=== PATIENT | male | born 1990 | race Caucasian/White ===

== ENCOUNTER 2023-05-19 10:52 | Emergency (ER) | payer OTHER, SELFPAY ==
--- NOTE | 2023-05-19 11:19 | PC.NURSE ---
Visualized upon entry to ED, no acute distress.
[2023-05-19 11:22] VITALS: BP 144/90; PULSE 65; RESP 15; TEMP 37; O2SAT 99; BMI 26.5
--- NOTE | 2023-05-19 11:40 | ED.CHESTPAIN ---
HPI - Chest Pain <Mariya Baum PA-C - Last Filed: 05/19/23 13:55> General Chief Complaint: Chest Pain Stated Complaint: L chest/shoulder pain Time Seen by Provider: 05/19/23 11:31 Source: patient Mode of arrival: Family Vehicle Limitations: no limitations History of Present Illness HPI narrative: Patient is a 32-year-old male who presents with left-sided chest pain x2 days. He reports no history of chest pain, early cardiac , cardiac problems in the family. He does report that he recently had an MRI of his heart because there was concern for enlarged tissue in his heart but they did not find anything on the MRI and he was cleared by a solar sales estimator. He does not have recurring chest pain. He reports this chest pain feels muscular, it is worse with lifting or pushing movements and is better with rest, but he does endorse discomfort all the time. He thought it was due to sleeping in a strange position but it has not seemed to resolve. He works as an manufacturing support engineer on an [employer] and is about to leave for an extended trip to [place] so he needs to make sure that he can continue his work to a remote area. He endorses some nausea and coughing up phlegm over the past days but denies vomiting, diaphoresis, exercise intolerance. He is generally active and healthy. He does not take any medications daily. He has a nonsmoker. Related Data Home Medications Medication Instructions Recorded Confirmed No Known Home Medications 05/19/23 05/19/23 Allergies Allergy/AdvReac Type Severity Reaction Status Date / Time No Known Drug Allergies Allergy Verified 05/19/23 10:25 Review of Systems <Mariya Baum PA-C - Last Filed: 05/19/23 13:55> Review of Systems ROS Unobtainable: All systems reviewed & are unremarkable except as noted in HPI and below Patient History <Mariya Baum PA-C - Last Filed: 05/19/23 13:55> Social History Smoking Status: Never smoker Smoking Status: Never smoker alcohol intake frequency: holidays/special occasions only Substance Use Type: does not use Exam <Mariya Baum PA-C - Last Filed: 05/19/23 13:55> Narrative Exam Narrative: GENERAL: 32 year old patient appears stated age. Well-developed patient, in no distress. NEURO: AOx3. HEAD: Atraumatic. Normocephalic. EYES: Pupils equal round and reactive. Extraocular motions intact. No scleral icterus. No injection or drainage. ENT: Nose without bleeding or purulent drainage. Airway patent. NECK: Trachea midline. Non tender CARDIOVASCULAR: Regular rate and rhythm without murmurs, gallops, or rubs. RESPIRATORY: Clear to auscultation. Breath sounds equal bilaterally. No wheezes, rales, or rhonchi. CHEST WALL: Tender to palpation over left pectoral muscle, just medial and inferior to axilla. SKIN: No rash or erythema of visible areas Initial Vital Signs Initial Vital Signs: Vital Signs Temperature 98.6 F 05/19/23 11:22 Pulse Rate 65 05/19/23 11:22 Respiratory Rate 15 05/19/23 11:22 Blood Pressure 144/90 H 05/19/23 11:22 Pulse Oximetry 99 05/19/23 11:22 Oxygen Delivery Method Room Air 05/19/23 11:22 <Palma Martinez DO - Last Filed: 05/19/23 19:26> Initial Vital Signs Initial Vital Signs: Vital Signs Temperature 98.6 F 05/19/23 11:22 Pulse Rate 65 05/19/23 11:22 Respiratory Rate 15 05/19/23 11:22 Blood Pressure 144/90 H 05/19/23 11:22 Pulse Oximetry 99 05/19/23 11:22 Oxygen Delivery Method Room Air 05/19/23 11:22 Course <Mariya Baum PA-C - Last Filed: 05/19/23 13:55> Orders Ordered: ED Orders 05/19/23 11:27 EKG-12 Lead Stat 05/19/23 11:39 CXR [XR chest 2V] Stat 05/19/23 11:44 CBC Auto Diff [Complete Blood Count AUTO DIFF] Stat CHEM7 [Basic Metabolic Panel] Stat Troponin & CK Cardiac Panel Stat Vital Signs Vital signs: Vital Signs - 8 hr 05/19/23 12:24 Pulse Rate 74 Respiratory Rate 20 Blood Pressure 131/78 Pulse Oximetry 98 Oxygen Delivery Method Room Air <DO Doreen Mai Last Filed: 05/19/23 19:26> Orders Ordered: ED Orders 05/19/23 11:27 EKG-12 Lead Stat 05/19/23 11:39 CXR [XR chest 2V] Stat 05/19/23 11:44 CBC Auto Diff [Complete Blood Count AUTO DIFF] Stat CHEM7 [Basic Metabolic Panel] Stat Troponin & CK Cardiac Panel Stat Vital Signs Vital signs: Vital Signs - 8 hr 05/19/23 12:24 Pulse Rate 74 Respiratory Rate 20 Blood Pressure 131/78 Pulse Oximetry 98 Oxygen Delivery Method Room Air MDM - Chest Pain <Mariya Baum PA-C - Last Filed: 05/19/23 13:55> Lab Data 05/19/23 11:44 05/19/23 11:44 Labs: Lab Results 05/19/23 Range/Units 11:44 WBC 8.1 (4.5-11.0) X10^3/uL RBC 4.44 L (4.5-5.9) X10^6/uL Hgb 14.9 (13.5-17.5) g/dL Hct 43.7 (41-53) % MCV 98.5 (80-100) fL MCH 33.7 (26-34) PG MCHC 34.2 (30-36) % RDW 12.9 (11.6-14.8) % Plt Count 186 (150-400) X10^3/uL Neut % (Auto) 72.3 (50-75) % Lymph % (Auto) 20.6 L (25-40) % [place] % (Auto) 6.1 (3-14) % Eos % (Auto) 0.5 L (2-4) % Baso % (Auto) 0.5 (0-2) % Neut # (Auto) 5900 (8515-4423) /uL Lymph # (Auto) 1700 (8505-4626) /uL [place] # (Auto) 500 (0-900) /uL Eos # (Auto) 0 (0-450) /uL Baso # (Auto) 0 (0-100) /uL Sodium 138 (137-145) mmol/L Potassium 4.3 (3.4-5.1) mmol/L Chloride 102 (98-107) mmol/L Carbon Dioxide 29 (22-32) mmol/L BUN 17 (9-20) mg/dL Creatinine 0.88 (0.66-1.25) mg/dL Estimated GFR > 60 (>60) mL/min BUN/Creatinine Ratio 19.3 (6-22) Glucose 96 (70-100) mg/dL Calcium 10.4 H (8.4-10.2) mg/dL Total Creatine Kinase 129 (55-170) U/L Troponin I < 0.012 (0.01-0.034) ng/mL Imaging Data Chest x-ray: Radiologist's Impression: PROCEDURE: XR CHEST 2V INDICATIONS: left side chest pain TECHNIQUE: 2 views of the chest were acquired. COMPARISON: None. FINDINGS: Surgical changes and devices: None. Lungs and pleura: Lungs are clear. No pleural effusions or pneumothorax. Mediastinum: Mediastinal contours are normal. Heart size is normal. Bones and chest wall: No suspicious bony abnormalities. Soft tissues appear unremarkable. IMPRESSION: No acute cardiopulmonary abnormality is seen. Dictated by: Luis A Odell M.D. on 05/19/2023 at 11:04 Approved by: Luis A Odell M.D. on 05/19/2023 at 11:04 ECG Data Interpretation: Normal sinus rhythm with sinus arrhythmia, rate 63, QRS [address]-T changes concerning for ischemia. Reviewed with Dr. Martinez. MDM Narrative Medical decision making narrative: Multiple etiologies for patient's symptoms considered including, but not limited to: ACS, muscle strain, pneumonia, pericarditis. 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 Chest x-ray, EKG, labs all without clinically significant abnormality. Discussed these findings with the patient. Included symptoms to watch for and return precautions. Advised heat/ice, NSAIDs to manage current symptoms. Seek medical care if he develops any worsening symptoms, shortness of breath, exercise intolerance. Findings improved over duration of stay with above-stated therapies. Findings and discharge diagnosis discussed with patient/family followed by verbalization of understanding Return precautions discussed with patient/family whom verbalize understanding of diagnosis and plan <Palma Martinez, - Last Filed: 05/19/23 19:26> Lab Data Labs: Lab Results 05/19/23 Range/Units 11:44 WBC 8.1 (4.5-11.0) X10^3/uL RBC 4.44 L (4.5-5.9) X10^6/uL Hgb 14.9 (13.5-17.5) g/dL Hct 43.7 (41-53) % MCV 98.5 (80-100) fL MCH 33.7 (26-34) PG MCHC 34.2 (30-36) % RDW 12.9 (11.6-14.8) % Plt Count 186 (150-400) X10^3/uL Neut % (Auto) 72.3 (50-75) % Lymph % (Auto) 20.6 L (25-40) % [place] % (Auto) 6.1 (3-14) % Eos % (Auto) 0.5 L (2-4) % Baso % (Auto) 0.5 (0-2) % Neut # (Auto) 5900 (1399-0416) /uL Lymph # (Auto) 1700 (3015-3156) /uL [place] # (Auto) 500 (0-900) /uL Eos # (Auto) 0 (0-450) /uL Baso # (Auto) 0 (0-100) /uL Sodium 138 (137-145) mmol/L Potassium 4.3 (3.4-5.1) mmol/L Chloride 102 (98-107) mmol/L Carbon Dioxide 29 (22-32) mmol/L BUN 17 (9-20) mg/dL Creatinine 0.88 (0.66-1.25) mg/dL Estimated GFR > 60 (>60) mL/min BUN/Creatinine Ratio 19.3 (6-22) Glucose 96 (70-100) mg/dL Calcium 10.4 H (8.4-10.2) mg/dL Total Creatine Kinase 129 (55-170) U/L Troponin I < 0.012 (0.01-0.034) ng/mL Discharge Plan Departure Patient Disposition: Home Clinical Impression: Chest pain, muscular Instructions: DI for Atypical Chest Pain Activity Restrictions/Additional Instructions: *You have been diagnosed with muscular chest pain. During your ER stay, we completed a chest x-ray which was normal, an EKG which was normal, and labs including a troponin, which is a test for strain on your heart, all of which were normal. Based on these findings, your history and exam, it is very unlikely that this pain is related to your heart or other pathology inside your chest. It is most likely that this pain is related to a muscle strain. I would advise rest, ice/heat, NSAIDs and watchful waiting. If this pain acutely worsens, if you develop shortness of breath, exercise intolerance, sweating with the chest pain, or other concerning symptoms, you should immediately seek re-evaluation. 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 *What to do: *Please continue to take your regular medications as directed. [ ] New medication prescriptions sent to your pharmacy: [ ] [ ] New medication written as a paper prescription [x] No new medications given *Please follow up with your primary care provider in 2-3 days, call for an appointment. Let them know you were seen in the Emergency Department and that we ask that you be seen in follow up. We will electronically transmit a record of today's note if your PCP is in our system *If you do not have a primary care provider please contact the [facility] Resource line at [phone]. They will ask some questions about your medical history and help get you set up with a doctor in the community. *Return to Emergency Department if you should have any new, worsening or concerning symptoms, such as [fever greater than 101 F, shaking chills, worsening pain, persistent vomiting or other concerning symptoms]. Prescriptions: No Action No Known Home Medications Referrals: Miscellaneous,Doctor, [Primary Care Provider] - Stand Alone Forms: Patient Portal/API, Work Release Note ED Sign-out <Palma Martinez DO - Last Filed: 05/19/23 19:26> Cosign ED Attending Jason Attestation: I was immediately available in the department for consultation. EKG was reviewed by myself. No acute changes appreciated.
[2023-05-19 11:57] LABS: Add Manual Diff / Slide Review NO; Basophils Absolute Auto 0 /uL (0-100); Basophils Percent Auto 0.5 % (0-2); Eosinophils Absolute Auto 0 /uL (0-450); Eosinophils Percent Auto 0.5 % (2-4); Hematocrit 43.7 % (41-53); Hemoglobin 14.9 g/dL (13.5-17.5); Lymphocytes Absolute Auto 1700 /uL (1100-4500); Lymphocytes Percent Auto 20.6 % (25-40); Mean Corpuscular HGB Conc 34.2 % (30-36); Mean Corpuscular Hemoglobin 33.7 PG (26-34); Mean Corpuscular Volume 98.5 fL (80-100); Monocytes Absolute Auto 500 /uL (0-900); Monocytes Percent Auto 6.1 % (3-14); Neutrophils Absolute Auto 5900 /uL (1500-7000); Neutrophils Percent Auto 72.3 % (50-75); Platelet Count 186 X10^3/uL (150-400); Red Blood Cell Count 4.44 X10^6/uL (4.5-5.9); Red Cell Distribution Width 12.9 % (11.6-14.8); White Blood Cell Count 8.1 X10^3/uL (4.5-11.0)
[2023-05-19 12:05] LABS: BUN Creatinine Ratio 19.3 (6-22); Blood Urea Nitrogen 17 mg/dL (9-20); Calcium 10.4 mg/dL (8.4-10.2); Carbon Dioxide 29 mmol/L (22-32); Chloride 102 mmol/L (98-107); Creatine Kinase 129 U/L (55-170); Estimated Glomerular Filt Rate > 60 mL/min (>60); Glucose 96 mg/dL (70-100); HEMOLYSIS < 15 (0-50); Potassium 4.3 mmol/L (3.4-5.1); Sodium 138 mmol/L (137-145)
[2023-05-19 12:16] LABS: Troponin I < 0.012 ng/mL (0.01-0.034)
[2023-05-19 12:24] VITALS: BP 131/78; PULSE 74; RESP 20; O2SAT 98
== END 2023-05-19 12:58 | disposition home or self-care (01) ==
PROVIDERS: Emergency Provider Physician Assistant
DX: R07.89 Other chest pain (principal)
CPT/HCPCS: 71046; 80048; 82550; 84484; 85025; 93005; 93010; 99283; 99284